=== PATIENT | male | born 1935 | race Caucasian/White ===

== ENCOUNTER 2016-10-25 18:42 | Inpatient (IN) | payer OTHER, MEDICARE ==
[~2016-10-25] VITALS: Ht 177.8 cm; Wt 78.9 kg
[2016-10-25] VITALS (7 sets, daily range): BP systolic 103–142; BP diastolic 43–118; PULSE 90–221; RESP 24–44; TEMP 96.9; O2SAT 95–99
[2016-10-25] MEDS ORDERED: DILTIAZEM HCL 25 MG/5 ML VIAL ONE (18:49)
[2016-10-25] MEDS ORDERED: ADENOSINE 6MG/2ML VIAL ONE (18:55)
[2016-10-25] MEDS ORDERED: DILTIAZEM HCL 125 MG/25 ML VIAL IV ONE (18:56)
[2016-10-25] MEDS ORDERED: AMOX500C2 PO (18:59)
[2016-10-25] MEDS ORDERED: ALD250 PO (18:59)
[2016-10-25] MEDS ORDERED: HYDR-1115 PO (18:59)
[2016-10-25] MEDS ORDERED: BENZ100C67 PO (18:59)
[2016-10-25] MEDS ORDERED: LISI-600 PO (18:59)
[2016-10-25] MEDS ORDERED: CLON0.5T4 PO (18:59)
[2016-10-25] MEDS ORDERED: NACL 0.9% 1,000 ML IV ONE ×2 (19:00→20:15)
[2016-10-25] MEDS ORDERED: DILTIAZEM HCL 125 MG in D5W 100 ML IV ONE (19:00)
[2016-10-25] MEDS ORDERED: MORPHINE SULFATE 10 MG/ML VIAL IVP ONE (19:00)
[2016-10-25] MEDS ORDERED: ETOMIDATE 20 MG/ 10 ML VIAL (AMIDATE) IVP ONE ×2 (19:00→20:00)
[2016-10-25] MEDS ORDERED: ROCURONIUM BROMIDE 10 MG/ML (ZEMURON) IV ONE ×3 (19:00→20:00)
[2016-10-25] MEDS ORDERED: methylPREDNISolone SOD SUCC/PF 62.5 MG/ML VIAL IVP ONE (19:00)
[2016-10-25] MEDS ORDERED: methylPREDNISolone SOD SUCC/PF 62.5 MG/ML VIAL ONE (19:03)
[2016-10-25 19:18] LABS: BASOPHILS % (AUTO) 0.1 % (0.0-2.0); EOSINOPHILS % (AUTO) 0.5 % (0.0-4.0); HEMATOCRIT 33.3 % (36-54); HEMOGLOBIN 11.1 g/dL (14.0-18.0); LYMPHOCYTES % (AUTO) 10.6 % (20.5-51.5); MEAN CORPUSCULAR HEMOGLOBIN 30 pg (27-31); MEAN CORPUSCULAR HGB CONC 33 % (32-36); MEAN CORPUSCULAR VOLUME 89 fL (79.0-98.0); MONOCYTES # (AUTO) 0.8 K/uL (0.0-1.0); MONOCYTES % (AUTO) 8.2 % (1.7-9.3); NEUTROPHILS # (AUTO) 7.5 K/uL (1.8-7.7); NEUTROPHILS % (AUTO) 80.6 % (40.0-70.0); PLATELET COUNT (AUTO) 173 K/uL (130-430); RED BLOOD CELL COUNT(AUTO) 3.75 MIL/uL (4.2-6.2); RED CELL DISTRIBUTION WIDTH 12.4 % (9.0-15.0); WHITE BLOOD COUNT (AUTO) 9.3 K/uL (4.8-10.8)
[2016-10-25 19:23] LABS: INR 1.4 (0.80-1.20); PROTHROMBIN TIME 15.2 SECS (9.5-12.5)
[2016-10-25] MEDS ORDERED: PROPOFOL DRIP 100 ML IV ONE (19:30)
[2016-10-25] MEDS ORDERED: DILTIAZEM HCL 25 MG/5 ML VIAL IVP ONE ×3 (19:30→20:00)
[2016-10-25 19:37] LABS: SODIUM SERUM 143 mmol/L (136-145)
[2016-10-25 19:37] LABS: BLOOD GAS BASE EXCESS -3.3 mmol/L (-3.0-3.0); BLOOD GAS PH 7.387 (7.350-7.450)
[2016-10-25 19:38] LABS: ANION GAP 10 (5-15); CHLORIDE 114 mmol/L (98-107); GLUCOSE 152 mg/dL (70-99); UREA NITROGEN, BLOOD 24 mg/dL (8-21)
[2016-10-25 19:38] LABS: ABG TOTAL HEMOGLOBIN 18.8 G/dL (12.0-18.0); BLOOD GAS COHb% 0.3 % (0.5-1.5); BLOOD O2Hb% 90.9 % (94.0-97.0)
[2016-10-25 19:39] LABS: ALANINE AMINOTRANSFERASE 28 U/L (12-78); ALBUMIN 1.4 g/dL (3.4-4.8); ASPARTATE AMINOTRANSFERASE 19 U/L (10-37); CREATINE KINASE, TOTAL 77 U/L (39-308); CREATININE 0.54 mg/dL (0.55-1.30); TOTAL BILIRUBIN 0.3 mg/dL (0.0-1.0); TOTAL PROTEIN, SERUM 4.4 g/dL (6.4-8.3)
[2016-10-25] MEDS ORDERED: KCL 40 mEq in 100 mL (PREMIX) 100 ML IV ONE (19:45)
[2016-10-25] MEDS ORDERED: ENOXAPARIN SODIUM 80 MG/0.8 ML SYRINGE SUBCUT ONE (20:00)
[2016-10-25] MEDS ORDERED: POTASSIUM CHLORIDE 20 MEQ/PKT PACKET NG ONE (20:15)
[2016-10-25] MEDS ORDERED: KCL 20 mEq in 100 mL (PREMIX) 200 ML IV ONE (20:22)
[2016-10-25 21:17] LABS: BLOOD GAS PH 7.189 (7.350-7.450)
[2016-10-25 21:18] LABS: BLOOD GAS BASE EXCESS -6.4 mmol/L (-3.0-3.0)
[2016-10-25 21:19] LABS: ABG TOTAL HEMOGLOBIN 18.9 G/dL (12.0-18.0); BLOOD GAS COHb% 0.3 % (0.5-1.5)
[2016-10-25] MEDS ORDERED: DIGOXIN 0.5 MG/2 ML AMP IVP ONE (21:30)
[2016-10-25] MEDS ORDERED: DIGOXIN 0.5 MG/2 ML AMP ONE (21:38)
[2016-10-25] MEDS ORDERED: IPRATROPIUM/ALBUTEROL SULFATE 3 ML AMPUL.NEB INH PRN (21:45)
[2016-10-25] MEDS ORDERED: DILTIAZEM HCL 125 MG in D5W 100 ML IV SCH (21:45)
[2016-10-25] MEDS: methylPREDNISolone SOD SUCC/PF 62.5 MG/ML VIAL IVP SCH (21:59)
[2016-10-25] MEDS ORDERED: NACL 0.9% 1,000 ML IV SCH (22:00)
[2016-10-25 22:23] LABS: ANION GAP 9 (5-15); CALCIUM 7.9 mg/dL (8.4-11.0); CHLORIDE 105 mmol/L (98-107); CREATININE 1.37 mg/dL (0.55-1.30); GLUCOSE 230 mg/dL (70-99); PHOSPHORUS 5.2 mg/dL (2.7-4.5); POTASSIUM 3.5 mmol/L (3.5-5.1); SODIUM SERUM 138 mmol/L (136-145); UREA NITROGEN, BLOOD 35 mg/dL (8-21)
[2016-10-25] MEDS ORDERED: FAMOTIDINE PF 20 MG/2 ML VIAL IVP ONE (22:30)
[2016-10-25] MEDS ORDERED: MORPHINE 4 MG/ML INJ. SYRINGE IVP PRN (22:30)
[2016-10-25 22:45] LABS: BLOOD GAS PH 7.167 (7.350-7.450)
[2016-10-25] MEDS ORDERED: ONDANSETRON HCL 4 MG/2 ML VIAL IVP PRN (22:45)
[2016-10-25 22:46] LABS: ABG TOTAL HEMOGLOBIN 17.5 G/dL (12.0-18.0); BLOOD GAS BASE EXCESS -8.4 mmol/L (-3.0-3.0)
[2016-10-25 22:47] LABS: BLOOD GAS COHb% 0.3 % (0.5-1.5); BLOOD GAS HHB 4.2 % (0.0-6.0)
[2016-10-25] MEDS: LR 1,000 ML IV SCH (23:03)
[2016-10-25 23:15] LABS: BLOOD GAS PH 7.118 (7.350-7.450)
[2016-10-25 23:16] LABS: ABG TOTAL HEMOGLOBIN 16.4 G/dL (12.0-18.0); BLOOD GAS BASE EXCESS -12.3 mmol/L (-3.0-3.0); BLOOD GAS COHb% 0.3 % (0.5-1.5); BLOOD GAS HHB 3.1 % (0.0-6.0); BLOOD O2Hb% 96.2 % (94.0-97.0)
[2016-10-25] MEDS ORDERED: POTASSIUM CHLORIDE 20 MEQ/PKT PACKET PO ONE (23:45)
[2016-10-26] VITALS (35 sets, daily range): BP systolic 88–165; BP diastolic 39–93; PULSE 60–161; RESP 20–35; TEMP 95.2–98; O2SAT 86–98; Ht 177.8 cm; Wt 78.9 kg
[2016-10-26] MEDS: LR 1,000 ML IV SCH ×2 (01:06→04:11)
[2016-10-26] MEDS: IPRATROPIUM/ALBUTEROL SULFATE 3 ML AMPUL.NEB INH SCH ×6 (01:08→23:35)
[2016-10-26] MEDS ORDERED: DILTIAZEM HCL 125 MG/25 ML VIAL IV ONE (01:28)
[2016-10-26 01:29] LABS: BLOOD GAS PH 7.053 (7.350-7.450)
[2016-10-26 01:32] LABS: ABG TOTAL HEMOGLOBIN 17.2 G/dL (12.0-18.0); BLOOD GAS BASE EXCESS -13.5 mmol/L (-3.0-3.0); BLOOD GAS COHb% 0.3 % (0.5-1.5); BLOOD GAS HHB 3.1 % (0.0-6.0); BLOOD O2Hb% 96.1 % (94.0-97.0)
[2016-10-26 02:07] LABS: ABG TOTAL HEMOGLOBIN 17.5 G/dL (12.0-18.0); BLOOD GAS BASE EXCESS -16.1 mmol/L (-3.0-3.0); BLOOD GAS COHb% 0.3 % (0.5-1.5); BLOOD GAS HHB 4.1 % (0.0-6.0)
[2016-10-26] MEDS ORDERED: NOREPINEPHRINE BITARTRATE 4 MG in NS 246 ML IV PRN (02:15)
[2016-10-26] MEDS ORDERED: NOREPINEPHRINE 4 MG/4 ML VIAL IV ONE (03:10)
[2016-10-26 03:39] LABS: BLOOD GAS PH 6.973 (7.350-7.450)
[2016-10-26 03:41] LABS: ABG TOTAL HEMOGLOBIN 16.6 G/dL (12.0-18.0); BLOOD GAS BASE EXCESS -18.4 mmol/L (-3.0-3.0); BLOOD GAS COHb% 0.2 % (0.5-1.5); BLOOD GAS HHB 7.1 % (0.0-6.0); BLOOD O2Hb% 92.2 % (94.0-97.0)
[2016-10-26] MEDS ORDERED: FUROSEMIDE 40 MG/4 ML VIAL IVP ONE (06:45)
[2016-10-26] MEDS ORDERED: LR 1,000 ML IV SCH (06:45)
[2016-10-26] MEDS: methylPREDNISolone SOD SUCC/PF 62.5 MG/ML VIAL IVP SCH ×4 (06:57→23:12)
[2016-10-26 07:15] LABS: ALANINE AMINOTRANSFERASE 61 U/L (12-78); ALBUMIN 2.1 g/dL (3.4-4.8); ANION GAP 14 (5-15); ASPARTATE AMINOTRANSFERASE 46 U/L (10-37); CALCIUM 7.6 mg/dL (8.4-11.0); CHLORIDE 106 mmol/L (98-107); CREATININE 1.81 mg/dL (0.55-1.30); GLUCOSE 302 mg/dL (70-99); SODIUM SERUM 136 mmol/L (136-145); THYROID STIMULATING HORMONE 0.22 uIu/mL (0.34-4.82); TOTAL BILIRUBIN 0.6 mg/dL (0.0-1.0); TOTAL PROTEIN, SERUM 7.3 g/dL (6.4-8.3); UREA NITROGEN, BLOOD 38 mg/dL (8-21)
[2016-10-26 07:18] LABS: BASOPHILS % (AUTO) 0.1 % (0.0-2.0); HEMATOCRIT 47.6 % (36-54); HEMOGLOBIN 15.3 g/dL (14.0-18.0); LYMPHOCYTES # (AUTO) 0.8 K/uL (1.0-5.5); LYMPHOCYTES % (AUTO) 4.1 % (20.5-51.5); MEAN CORPUSCULAR HEMOGLOBIN 29 pg (27-31); MEAN CORPUSCULAR HGB CONC 32 % (32-36); MONOCYTES # (AUTO) 0.7 K/uL (0.0-1.0); MONOCYTES % (AUTO) 3.5 % (1.7-9.3); NEUTROPHILS # (AUTO) 17.6 K/uL (1.8-7.7); PLATELET COUNT (AUTO) 270 K/uL (130-430); RED BLOOD CELL COUNT(AUTO) 5.24 MIL/uL (4.2-6.2); RED CELL DISTRIBUTION WIDTH 13.1 % (9.0-15.0); WHITE BLOOD COUNT (AUTO) 19.1 K/uL (4.8-10.8)
[2016-10-26 07:24] LABS: MEAN CORPUSCULAR VOLUME 91 fL (79.0-98.0)
[2016-10-26 07:31] LABS: POTASSIUM 6.1 mmol/L (3.5-5.1)
[2016-10-26] MEDS ORDERED: SODIUM BICARBONATE 8.4% JECT 50 MEQ/50 ML SYRINGE IVP ONE (08:00)
[2016-10-26 08:02] LABS: ABG TOTAL HEMOGLOBIN 16.6 G/dL (12.0-18.0); BLOOD GAS BASE EXCESS -14.3 mmol/L (-3.0-3.0); BLOOD GAS COHb% 0.3 % (0.5-1.5); BLOOD GAS HHB 4.9 % (0.0-6.0); BLOOD GAS PH 7.147 (7.350-7.450); BLOOD O2Hb% 94.6 % (94.0-97.0)
[2016-10-26] MEDS: FAMOTIDINE PF 20 MG/2 ML VIAL IVP SCH ×2 (08:35→21:06)
[2016-10-26] MEDS: ENOXAPARIN SODIUM 60 MG/0.6 ML SYRINGE SUBCUT SCH ×2 (08:36→21:00)
[2016-10-26] MEDS: POTASSIUM CHLORIDE 20 MEQ/PKT PACKET NG SCH ×3 (08:36→21:00)
[2016-10-26] MEDS: LISINOPRIL 20 MG TABLET PO SCH (08:37)
[2016-10-26] MEDS: PROPOFOL DRIP 100 ML IV PRN ×3 (08:40→23:08)
[2016-10-26] MEDS ORDERED: MORPHINE 2 MG/ML INJ. SYRINGE IVP PRN (09:00)
[2016-10-26] MEDS ORDERED: DIGOXIN 0.5 MG/2 ML AMP IVP SCH (09:00)
[2016-10-26] MEDS ORDERED: SODIUM BICARBONATE 8.4% JECT 100 MEQ in 0.45% NACL 1,000 ML IV SCH ×2 (09:00→11:00)
[2016-10-26 09:03] LABS: IRON (SERUM) 44 mcg/dL (59-158); TOTAL IRON BIND. CAPACITY 158 ug/dL (250-450)
[2016-10-26] MEDS ORDERED: SODIUM POLYSTYRENE SULFONATE 15 GM/60 ML UDBTL NG ONE (09:30)
[2016-10-26 10:10] LABS: NEUTROPHILS % (AUTO) 92.3 % (40.0-70.0)
[2016-10-26] MEDS ORDERED: SODIUM BICARBONATE 8.4% JECT 50 MEQ in 0.45% NACL 1,000 ML IV SCH (10:45)
[2016-10-26] MEDS: CEFEPIME 1 GM in D5W 50 ML IV SCH ×2 (11:41→21:14)
[2016-10-26 12:30] LABS: ABG TOTAL HEMOGLOBIN 15.6 G/dL (12.0-18.0); BLOOD GAS BASE EXCESS -4.7 mmol/L (-3.0-3.0); BLOOD GAS HHB 4.9 % (0.0-6.0); BLOOD GAS PH 7.372 (7.350-7.450)
[2016-10-26 14:31] LABS: ANION GAP 8 (5-15); CHLORIDE 111 mmol/L (98-107); CREATININE 2.15 mg/dL (0.55-1.30); GLUCOSE 169 mg/dL (70-99); POTASSIUM 4.6 mmol/L (3.5-5.1); SODIUM SERUM 142 mmol/L (136-145); UREA NITROGEN, BLOOD 47 mg/dL (8-21)
[2016-10-26] MEDS ORDERED: ASPIRIN 81 MG TABLET(ECOTRIN) PO ONE (16:00)
[2016-10-26] MEDS ORDERED: hydrALAZINE HCL 20 MG/ML VIAL IVP ONE (17:45)
[2016-10-26] MEDS: D5/0.45 NS 1,000 ML IV SCH (17:45)
[2016-10-26] MEDS ORDERED: hydrALAZINE HCL 20 MG/ML VIAL ONE (17:47)
[2016-10-26] MEDS ORDERED: AMIODARONE HCL 150 MG in D5W 100 ML IV ONE (18:00)
[2016-10-26] MEDS ORDERED: DILTIAZEM HCL 30 MG TABLET PO ONE (19:30)
[2016-10-26] MEDS: AMIODARONE HCL 900 MG in D5W 482 ML IV SCH (20:21)
[2016-10-26] MEDS: LEVOFLOXACIN 250 MG/D5W 50 ML IV SCH (21:13)
[2016-10-26] MEDS: DILTIAZEM HCL 30 MG TABLET PO SCH (23:13)
[2016-10-27] VITALS (36 sets, daily range): BP systolic 107–169; BP diastolic 55–116; PULSE 78–136; RESP 17–29; TEMP 97.2–98.5; O2SAT 97–100
[2016-10-27] MEDS: clonazePAM 0.5 MG TABLET PO PRN (00:07)
[2016-10-27] MEDS: LORazepam 2 MG/ML VIAL IVP PRN ×4 (02:16→12:27)
[2016-10-27] MEDS: D5/0.45 NS 1,000 ML IV SCH ×3 (02:19→22:16)
[2016-10-27] MEDS: IPRATROPIUM/ALBUTEROL SULFATE 3 ML AMPUL.NEB INH SCH ×6 (03:59→23:32)
[2016-10-27] MEDS: PROPOFOL DRIP 100 ML IV PRN ×3 (04:36→23:23)
[2016-10-27] MEDS: methylPREDNISolone SOD SUCC/PF 62.5 MG/ML VIAL IVP SCH ×4 (05:04→23:24)
[2016-10-27] MEDS: DILTIAZEM HCL 30 MG TABLET PO SCH ×4 (05:05→23:25)
[2016-10-27 06:54] LABS: HEMATOCRIT 38.8 % (36-54); HEMOGLOBIN 13.2 g/dL (14.0-18.0); LYMPHOCYTES # (AUTO) 0.4 K/uL (1.0-5.5); LYMPHOCYTES % (AUTO) 2.2 % (20.5-51.5); MEAN CORPUSCULAR HEMOGLOBIN 30 pg (27-31); MEAN CORPUSCULAR HGB CONC 34 % (32-36); MEAN CORPUSCULAR VOLUME 89 fL (79.0-98.0); MONOCYTES # (AUTO) 0.8 K/uL (0.0-1.0); MONOCYTES % (AUTO) 4.7 % (1.7-9.3); NEUTROPHILS # (AUTO) 15.1 K/uL (1.8-7.7); NEUTROPHILS % (AUTO) 93.1 % (40.0-70.0); PLATELET COUNT (AUTO) 166 K/uL (130-430); RED BLOOD CELL COUNT(AUTO) 4.37 MIL/uL (4.2-6.2); RED CELL DISTRIBUTION WIDTH 12.5 % (9.0-15.0); WHITE BLOOD COUNT (AUTO) 16.3 K/uL (4.8-10.8)
[2016-10-27 06:58] LABS: ALANINE AMINOTRANSFERASE 74 U/L (12-78); ANION GAP 12 (5-15); ASPARTATE AMINOTRANSFERASE 64 U/L (10-37); CALCIUM 7.6 mg/dL (8.4-11.0); CHLORIDE 105 mmol/L (98-107); CREATININE 2.25 mg/dL (0.55-1.30); GLUCOSE 200 mg/dL (70-99); POTASSIUM 3.2 mmol/L (3.5-5.1); SODIUM SERUM 139 mmol/L (136-145); TOTAL BILIRUBIN 0.3 mg/dL (0.0-1.0); TOTAL PROTEIN, SERUM 6.2 g/dL (6.4-8.3); UREA NITROGEN, BLOOD 53 mg/dL (8-21)
[2016-10-27 07:42] LABS: ABG TOTAL HEMOGLOBIN 14.4 G/dL (12.0-18.0); BLOOD GAS BASE EXCESS -0.3 mmol/L (-3.0-3.0); BLOOD GAS COHb% 0.3 % (0.5-1.5); BLOOD GAS HHB 1.9 % (0.0-6.0); BLOOD O2Hb% 97.3 % (94.0-97.0)
[2016-10-27] MEDS: ASPIRIN 81 MG TABLET(ECOTRIN) PO SCH (08:06)
[2016-10-27] MEDS: CEFEPIME 1 GM in D5W 50 ML IV SCH ×2 (08:06→20:52)
[2016-10-27] MEDS: LISINOPRIL 20 MG TABLET PO SCH (08:08)
[2016-10-27] MEDS: POTASSIUM CHLORIDE 20 MEQ/PKT PACKET NG SCH ×2 (08:09→20:52)
[2016-10-27] MEDS: FAMOTIDINE PF 20 MG/2 ML VIAL IVP SCH ×2 (08:09→20:52)
[2016-10-27] MEDS: ENOXAPARIN SODIUM 60 MG/0.6 ML SYRINGE SUBCUT SCH ×2 (08:11→20:53)
[2016-10-27] MEDS: hydrALAZINE HCL 20 MG/ML VIAL IVP PRN (11:36)
[2016-10-27] MEDS ORDERED: DILTIAZEM HCL 30 MG TABLET PO ONE (14:00)
[2016-10-27] MEDS ORDERED: DILTIAZEM HCL 30 MG TABLET ONE (14:02)
[2016-10-27] MEDS ORDERED: AMIODARONE HCL 900 MG/18 ML VIAL IV ONE (20:27)
[2016-10-27] MEDS: AMIODARONE HCL 900 MG in D5W 482 ML IV SCH (20:39)
[2016-10-27] MEDS: LEVOFLOXACIN 250 MG/D5W 50 ML IV SCH (20:51)
[2016-10-27] MEDS: FLU VACC QS 2016-17(36MOS+)/PF 0.5 ML/SYR SYRINGE I.M. PRN (20:57)
[2016-10-28] VITALS (36 sets, daily range): BP systolic 113–168; BP diastolic 33–86; PULSE 76–105; RESP 18–28; TEMP 98–98.9; O2SAT 97–100
[2016-10-28] MEDS: IPRATROPIUM/ALBUTEROL SULFATE 3 ML AMPUL.NEB INH SCH ×6 (03:58→23:25)
[2016-10-28] MEDS: methylPREDNISolone SOD SUCC/PF 62.5 MG/ML VIAL IVP SCH ×3 (05:59→21:21)
[2016-10-28] MEDS: DILTIAZEM HCL 30 MG TABLET PO SCH ×3 (06:00→18:15)
[2016-10-28 06:37] LABS: HEMATOCRIT 40.3 % (36-54); HEMOGLOBIN 13.2 g/dL (14.0-18.0); LYMPHOCYTES # (AUTO) 0.2 K/uL (1.0-5.5); LYMPHOCYTES % (AUTO) 1.1 % (20.5-51.5); MEAN CORPUSCULAR HEMOGLOBIN 30 pg (27-31); MEAN CORPUSCULAR HGB CONC 33 % (32-36); MEAN CORPUSCULAR VOLUME 90 fL (79.0-98.0); MONOCYTES # (AUTO) 0.6 K/uL (0.0-1.0); MONOCYTES % (AUTO) 3.2 % (1.7-9.3); NEUTROPHILS % (AUTO) 95.7 % (40.0-70.0); PLATELET COUNT (AUTO) 209 K/uL (130-430); RED BLOOD CELL COUNT(AUTO) 4.46 MIL/uL (4.2-6.2); WHITE BLOOD COUNT (AUTO) 19.8 K/uL (4.8-10.8)
[2016-10-28 06:51] LABS: ALANINE AMINOTRANSFERASE 90 U/L (12-78); ALBUMIN 2.1 g/dL (3.4-4.8); ANION GAP 9 (5-15); ASPARTATE AMINOTRANSFERASE 50 U/L (10-37); CALCIUM 7.6 mg/dL (8.4-11.0); CHLORIDE 104 mmol/L (98-107); CREATININE 2.27 mg/dL (0.55-1.30); GLUCOSE 231 mg/dL (70-99); POTASSIUM 4.1 mmol/L (3.5-5.1); SODIUM SERUM 135 mmol/L (136-145); TOTAL BILIRUBIN 0.2 mg/dL (0.0-1.0); TOTAL PROTEIN, SERUM 6.3 g/dL (6.4-8.3); UREA NITROGEN, BLOOD 67 mg/dL (8-21)
[2016-10-28 08:04] LABS: BLOOD GAS PH 7.391 (7.350-7.450)
[2016-10-28 08:05] LABS: BLOOD GAS BASE EXCESS -5.1 mmol/L (-3.0-3.0); BLOOD GAS COHb% 0.5 % (0.5-1.5); BLOOD GAS HHB 2.7 % (0.0-6.0); BLOOD O2Hb% 96.3 % (94.0-97.0)
[2016-10-28] MEDS: FAMOTIDINE PF 20 MG/2 ML VIAL IVP SCH ×2 (09:43→21:12)
[2016-10-28] MEDS: CEFEPIME 1 GM in D5W 50 ML IV SCH ×2 (09:43→21:12)
[2016-10-28] MEDS: ENOXAPARIN SODIUM 60 MG/0.6 ML SYRINGE SUBCUT SCH ×2 (09:43→21:12)
[2016-10-28] MEDS: D5/0.45 NS 1,000 ML IV SCH (09:44)
[2016-10-28] MEDS: POTASSIUM CHLORIDE 20 MEQ/PKT PACKET NG SCH (09:44)
[2016-10-28] MEDS: ASPIRIN 81 MG TABLET(ECOTRIN) PO SCH (09:44)
[2016-10-28] MEDS: PROPOFOL DRIP 100 ML IV PRN ×3 (09:51→22:07)
[2016-10-28 09:57] LABS: HEMOGLOBIN A1C 5.9 % (4.8-5.6)
[2016-10-28] MEDS ORDERED: FUROSEMIDE 20 MG/2 ML VIAL IVP ONE (10:15)
[2016-10-28] MEDS: 0.45% NACL 1,000 ML IV SCH ×2 (11:04→22:01)
[2016-10-28] MEDS ORDERED: AMIODARONE HCL 200 MG TABLET PO ONE (16:15)
[2016-10-28] MEDS: AMIODARONE HCL 200 MG TABLET PO SCH (21:13)
[2016-10-28] MEDS: hydrALAZINE HCL 20 MG/ML VIAL IVP PRN (21:38)
[2016-10-28] MEDS: LEVOFLOXACIN 250 MG/D5W 50 ML IV SCH (21:58)
[2016-10-29] VITALS (35 sets, daily range): BP systolic 115–179; BP diastolic 54–84; PULSE 73–99; RESP 17–30; TEMP 97.3–98.9; O2SAT 97–99
[2016-10-29] MEDS: DILTIAZEM HCL 30 MG TABLET PO SCH ×3 (00:22→14:02)
[2016-10-29] MEDS: PROPOFOL DRIP 100 ML IV PRN ×3 (02:04→17:17)
[2016-10-29] MEDS: IPRATROPIUM/ALBUTEROL SULFATE 3 ML AMPUL.NEB INH SCH ×5 (04:04→23:12)
[2016-10-29] MEDS: methylPREDNISolone SOD SUCC/PF 62.5 MG/ML VIAL IVP SCH ×3 (06:11→23:04)
[2016-10-29 06:51] LABS: BASOPHILS % (AUTO) 0.1 % (0.0-2.0); HEMATOCRIT 40.7 % (36-54); HEMOGLOBIN 13.6 g/dL (14.0-18.0); LYMPHOCYTES # (AUTO) 0.2 K/uL (1.0-5.5); LYMPHOCYTES % (AUTO) 0.9 % (20.5-51.5); MEAN CORPUSCULAR HEMOGLOBIN 30 pg (27-31); MEAN CORPUSCULAR HGB CONC 33 % (32-36); MEAN CORPUSCULAR VOLUME 90 fL (79.0-98.0); MONOCYTES # (AUTO) 0.8 K/uL (0.0-1.0); MONOCYTES % (AUTO) 4.2 % (1.7-9.3); NEUTROPHILS # (AUTO) 17.2 K/uL (1.8-7.7); NEUTROPHILS % (AUTO) 94.8 % (40.0-70.0); PLATELET COUNT (AUTO) 223 K/uL (130-430); RED BLOOD CELL COUNT(AUTO) 4.55 MIL/uL (4.2-6.2); RED CELL DISTRIBUTION WIDTH 13.5 % (9.0-15.0); WHITE BLOOD COUNT (AUTO) 18.2 K/uL (4.8-10.8)
[2016-10-29 07:05] LABS: ALANINE AMINOTRANSFERASE 89 U/L (12-78); ALBUMIN 1.9 g/dL (3.4-4.8); ANION GAP 7 (5-15); ASPARTATE AMINOTRANSFERASE 39 U/L (10-37); CALCIUM 7.5 mg/dL (8.4-11.0); CHLORIDE 106 mmol/L (98-107); CREATININE 2.09 mg/dL (0.55-1.30); GLUCOSE 163 mg/dL (70-99); POTASSIUM 4.9 mmol/L (3.5-5.1); SODIUM SERUM 136 mmol/L (136-145); TOTAL BILIRUBIN 0.2 mg/dL (0.0-1.0); UREA NITROGEN, BLOOD 72 mg/dL (8-21)
[2016-10-29 08:27] LABS: ABG TOTAL HEMOGLOBIN 14.6 G/dL (12.0-18.0); BLOOD GAS BASE EXCESS -4.6 mmol/L (-3.0-3.0); BLOOD GAS COHb% 0.7 % (0.5-1.5); BLOOD GAS HHB 2.1 % (0.0-6.0); BLOOD GAS PH 7.411 (7.350-7.450); BLOOD O2Hb% 96.6 % (94.0-97.0)
[2016-10-29] MEDS ORDERED: FUROSEMIDE 20 MG/2 ML VIAL IVP ONE (10:45)
[2016-10-29] MEDS: CEFEPIME 1 GM in D5W 50 ML IV SCH ×2 (10:52→23:05)
[2016-10-29] MEDS: FAMOTIDINE PF 20 MG/2 ML VIAL IVP SCH ×2 (10:52→23:04)
[2016-10-29] MEDS: AMIODARONE HCL 200 MG TABLET PO SCH ×2 (10:53→23:03)
[2016-10-29] MEDS: ASPIRIN 81 MG TABLET(ECOTRIN) PO SCH (10:54)
[2016-10-29] MEDS: ENOXAPARIN SODIUM 60 MG/0.6 ML SYRINGE SUBCUT SCH ×2 (10:54→23:05)
[2016-10-29] MEDS: 0.45% NACL 1,000 ML IV SCH (14:19)
[2016-10-29] MEDS: LORazepam 2 MG/ML VIAL IVP PRN ×2 (18:30→23:33)
[2016-10-29] MEDS: CARVEDILOL 6.25 MG TABLET (COREG) PO SCH (23:03)
[2016-10-29] MEDS: LEVOFLOXACIN 250 MG/D5W 50 ML IV SCH (23:05)
[2016-10-30] VITALS (30 sets, daily range): BP systolic 123–192; BP diastolic 62–98; PULSE 69–86; RESP 10–25; TEMP 97–99.1; O2SAT 93–99
[2016-10-30] MEDS: IPRATROPIUM/ALBUTEROL SULFATE 3 ML AMPUL.NEB INH SCH ×6 (04:03→23:16)
[2016-10-30] MEDS: PROPOFOL DRIP 100 ML IV PRN (04:47)
[2016-10-30] MEDS: methylPREDNISolone SOD SUCC/PF 62.5 MG/ML VIAL IVP SCH ×3 (06:07→21:44)
[2016-10-30] MEDS: 0.45% NACL 1,000 ML IV SCH ×2 (06:36→07:16)
[2016-10-30 06:38] LABS: BASOPHILS % (AUTO) 0.1 % (0.0-2.0); HEMATOCRIT 40.7 % (36-54); HEMOGLOBIN 13.8 g/dL (14.0-18.0); LYMPHOCYTES # (AUTO) 0.1 K/uL (1.0-5.5); LYMPHOCYTES % (AUTO) 0.8 % (20.5-51.5); MEAN CORPUSCULAR HEMOGLOBIN 30 pg (27-31); MEAN CORPUSCULAR HGB CONC 34 % (32-36); MEAN CORPUSCULAR VOLUME 90 fL (79.0-98.0); MONOCYTES # (AUTO) 0.6 K/uL (0.0-1.0); MONOCYTES % (AUTO) 4.1 % (1.7-9.3); NEUTROPHILS # (AUTO) 13.9 K/uL (1.8-7.7); PLATELET COUNT (AUTO) 230 K/uL (130-430); RED BLOOD CELL COUNT(AUTO) 4.54 MIL/uL (4.2-6.2); RED CELL DISTRIBUTION WIDTH 13.2 % (9.0-15.0); WHITE BLOOD COUNT (AUTO) 14.6 K/uL (4.8-10.8)
[2016-10-30 07:16] LABS: ANION GAP 4 (5-15); CALCIUM 7.9 mg/dL (8.4-11.0); CHLORIDE 107 mmol/L (98-107); GLUCOSE 167 mg/dL (70-99); POTASSIUM 5.4 mmol/L (3.5-5.1); SODIUM SERUM 136 mmol/L (136-145); UREA NITROGEN, BLOOD 81 mg/dL (8-21)
[2016-10-30 08:25] LABS: BLOOD GAS PH 7.408 (7.350-7.450)
[2016-10-30 08:26] LABS: ABG TOTAL HEMOGLOBIN 15.5 G/dL (12.0-18.0); BLOOD GAS BASE EXCESS -1.8 mmol/L (-3.0-3.0); BLOOD GAS COHb% 0.1 % (0.5-1.5); BLOOD GAS HHB 2.3 % (0.0-6.0); BLOOD O2Hb% 97.3 % (94.0-97.0)
[2016-10-30] MEDS: ASPIRIN 81 MG TABLET(ECOTRIN) PO SCH (08:30)
[2016-10-30] MEDS: CARVEDILOL 6.25 MG TABLET (COREG) PO SCH ×2 (08:30→21:46)
[2016-10-30] MEDS: FAMOTIDINE PF 20 MG/2 ML VIAL IVP SCH ×2 (08:31→21:47)
[2016-10-30] MEDS: AMIODARONE HCL 200 MG TABLET PO SCH ×2 (08:31→21:45)
[2016-10-30] MEDS: CEFEPIME 1 GM in D5W 50 ML IV SCH ×2 (08:32→22:11)
[2016-10-30] MEDS: ENOXAPARIN SODIUM 60 MG/0.6 ML SYRINGE SUBCUT SCH ×2 (09:34→21:45)
[2016-10-30 11:24] LABS: BLOOD GAS BASE EXCESS -1.4 mmol/L (-3.0-3.0); BLOOD GAS COHb% 0.3 % (0.5-1.5); BLOOD GAS HHB 2.7 % (0.0-6.0); BLOOD GAS PH 7.406 (7.350-7.450); BLOOD O2Hb% 96.7 % (94.0-97.0)
[2016-10-30] MEDS: hydrALAZINE HCL 20 MG/ML VIAL IVP PRN ×2 (14:48→22:23)
[2016-10-30] MEDS ORDERED: DEXTROSE 50% JECT 50 ML DISP.SYRIN IVP PRN (17:15)
[2016-10-30] MEDS: D5/0.45 NS 1,000 ML IV SCH (18:01)
[2016-10-30] MEDS ORDERED: LIDOCAINE VISCOUS 2%, 15 ML UDC MM PRN (20:00)
[2016-10-30] MEDS ORDERED: BENZOCAINE/MENTHOL 1 EACH LOZENGE MM PRN (20:00)
[2016-10-30] MEDS ORDERED: BENZOCAINE/MENTHOL 1 EACH LOZENGE ONE (21:44)
[2016-10-30] MEDS: INSULIN REGULAR, HUMAN 100 UNITS/ML, 10 ML VIAL (novoLIN R) SUBCUT PRN (22:13)
[2016-10-30] MEDS: LEVOFLOXACIN 250 MG/D5W 50 ML IV SCH (22:27)
[2016-10-31] VITALS (19 sets, daily range): BP systolic 144–174; BP diastolic 67–94; PULSE 68–79; RESP 12–22; TEMP 96.8–98.8; O2SAT 89–100
[2016-10-31] MEDS: clonazePAM 0.5 MG TABLET PO PRN (01:01)
[2016-10-31] MEDS: IPRATROPIUM/ALBUTEROL SULFATE 3 ML AMPUL.NEB INH SCH ×6 (03:00→23:46)
[2016-10-31] MEDS: hydrALAZINE HCL 20 MG/ML VIAL IVP PRN ×2 (05:50→15:52)
[2016-10-31] MEDS: methylPREDNISolone SOD SUCC/PF 62.5 MG/ML VIAL IVP SCH ×2 (05:55→13:28)
[2016-10-31] MEDS: INSULIN REGULAR, HUMAN 100 UNITS/ML, 10 ML VIAL (novoLIN R) SUBCUT PRN ×3 (05:56→17:17)
[2016-10-31] MEDS: FLU VACC QS 2016-17(36MOS+)/PF 0.5 ML/SYR SYRINGE I.M. PRN (06:07)
[2016-10-31 06:45] LABS: ALANINE AMINOTRANSFERASE 83 U/L (12-78); ALBUMIN 1.9 g/dL (3.4-4.8); ANION GAP 4 (5-15); ASPARTATE AMINOTRANSFERASE 34 U/L (10-37); CALCIUM 7.9 mg/dL (8.4-11.0); CHLORIDE 111 mmol/L (98-107); CREATININE 1.71 mg/dL (0.55-1.30); GLUCOSE 157 mg/dL (70-99); POTASSIUM 5.2 mmol/L (3.5-5.1); SODIUM SERUM 141 mmol/L (136-145); TOTAL BILIRUBIN 0.4 mg/dL (0.0-1.0); TOTAL PROTEIN, SERUM 5.7 g/dL (6.4-8.3); UREA NITROGEN, BLOOD 77 mg/dL (8-21)
[2016-10-31 06:50] LABS: HEMATOCRIT 43.6 % (36-54); HEMOGLOBIN 14.4 g/dL (14.0-18.0); LYMPHOCYTES # (AUTO) 0.1 K/uL (1.0-5.5); LYMPHOCYTES % (AUTO) 1.1 % (20.5-51.5); MEAN CORPUSCULAR HEMOGLOBIN 30 pg (27-31); MEAN CORPUSCULAR HGB CONC 33 % (32-36); MEAN CORPUSCULAR VOLUME 90 fL (79.0-98.0); MONOCYTES # (AUTO) 0.8 K/uL (0.0-1.0); NEUTROPHILS # (AUTO) 11.9 K/uL (1.8-7.7); NEUTROPHILS % (AUTO) 92.9 % (40.0-70.0); PLATELET COUNT (AUTO) 278 K/uL (130-430); RED BLOOD CELL COUNT(AUTO) 4.82 MIL/uL (4.2-6.2); RED CELL DISTRIBUTION WIDTH 13.6 % (9.0-15.0); WHITE BLOOD COUNT (AUTO) 12.8 K/uL (4.8-10.8)
[2016-10-31 07:56] LABS: BLOOD GAS PH 7.413 (7.350-7.450)
[2016-10-31 07:57] LABS: ABG TOTAL HEMOGLOBIN 16.2 G/dL (12.0-18.0); BLOOD GAS BASE EXCESS -0.5 mmol/L (-3.0-3.0); BLOOD GAS COHb% 0.4 % (0.5-1.5); BLOOD GAS HHB 3.3 % (0.0-6.0)
[2016-10-31] MEDS: FAMOTIDINE PF 20 MG/2 ML VIAL IVP SCH ×2 (08:21→22:04)
[2016-10-31] MEDS: ENOXAPARIN SODIUM 60 MG/0.6 ML SYRINGE SUBCUT SCH ×2 (08:21→22:05)
[2016-10-31] MEDS: ASPIRIN 81 MG TABLET(ECOTRIN) PO SCH (08:21)
[2016-10-31] MEDS: CEFEPIME 1 GM in D5W 50 ML IV SCH ×2 (08:21→22:07)
[2016-10-31] MEDS: CARVEDILOL 6.25 MG TABLET (COREG) PO SCH ×2 (08:26→22:06)
[2016-10-31] MEDS: AMIODARONE HCL 200 MG TABLET PO SCH ×2 (08:27→22:05)
[2016-10-31] MEDS: D5/0.45 NS 1,000 ML IV SCH (11:07)
[2016-10-31] MEDS ORDERED: THIAMINE HCL 100 MG in NS 50 ML IV ONE (17:45)
[2016-10-31] MEDS: methylPREDNISolone SOD SUCC 40 MG/ML VIAL IVP SCH (22:04)
[2016-10-31] MEDS: TAMSULOSIN HCL 0.4 MG CAP PO SCH (22:05)
[2016-10-31] MEDS: LEVOFLOXACIN 250 MG/D5W 50 ML IV SCH (22:25)
[2016-11-01 00:16] VITALS: BP 156/83; PULSE 77; RESP 20; TEMP 97.4; O2SAT 94
[2016-11-01] MEDS: IPRATROPIUM/ALBUTEROL SULFATE 3 ML AMPUL.NEB INH SCH ×6 (03:00→23:29)
[2016-11-01] MEDS: LORazepam 2 MG/ML VIAL IVP PRN (03:29)
[2016-11-01] MEDS: D5/0.45 NS 1,000 ML IV SCH ×2 (03:30→17:56)
[2016-11-01 04:23] VITALS: BP 124/66; PULSE 70; RESP 21; TEMP 97; O2SAT 94
[2016-11-01] MEDS: INSULIN REGULAR, HUMAN 100 UNITS/ML, 10 ML VIAL (novoLIN R) SUBCUT PRN ×4 (06:47→20:50)
[2016-11-01 07:26] LABS: BASOPHILS % (AUTO) 0.1 % (0.0-2.0); HEMATOCRIT 43.4 % (36-54); HEMOGLOBIN 14.3 g/dL (14.0-18.0); LYMPHOCYTES # (AUTO) 0.2 K/uL (1.0-5.5); LYMPHOCYTES % (AUTO) 1.2 % (20.5-51.5); MEAN CORPUSCULAR HEMOGLOBIN 30 pg (27-31); MEAN CORPUSCULAR HGB CONC 33 % (32-36); MEAN CORPUSCULAR VOLUME 89 fL (79.0-98.0); MONOCYTES # (AUTO) 0.7 K/uL (0.0-1.0); MONOCYTES % (AUTO) 5.2 % (1.7-9.3); NEUTROPHILS # (AUTO) 12.2 K/uL (1.8-7.7); NEUTROPHILS % (AUTO) 93.5 % (40.0-70.0); PLATELET COUNT (AUTO) 268 K/uL (130-430); RED BLOOD CELL COUNT(AUTO) 4.85 MIL/uL (4.2-6.2); RED CELL DISTRIBUTION WIDTH 13.4 % (9.0-15.0); WHITE BLOOD COUNT (AUTO) 13.1 K/uL (4.8-10.8)
[2016-11-01 07:47] LABS: ANION GAP 7 (5-15); CALCIUM 7.5 mg/dL (8.4-11.0); CHLORIDE 111 mmol/L (98-107); CREATININE 1.74 mg/dL (0.55-1.30); GLUCOSE 155 mg/dL (70-99); SODIUM SERUM 142 mmol/L (136-145); UREA NITROGEN, BLOOD 72 mg/dL (8-21)
[2016-11-01 08:15] VITALS: BP 184/90; PULSE 72; RESP 18; TEMP 97.8; O2SAT 95
[2016-11-01] MEDS: TAMSULOSIN HCL 0.4 MG CAP PO SCH ×2 (08:17→20:27)
[2016-11-01] MEDS: ASPIRIN 81 MG TABLET(ECOTRIN) PO SCH (08:18)
[2016-11-01] MEDS: CARVEDILOL 6.25 MG TABLET (COREG) PO SCH ×2 (08:18→20:28)
[2016-11-01] MEDS: THIAMINE HCL 100 MG TABLET PO SCH (08:18)
[2016-11-01] MEDS: AMIODARONE HCL 200 MG TABLET PO SCH ×2 (08:18→20:27)
[2016-11-01] MEDS: NEPHROVITE, (FOLIC ACID/VITAMIN B COMP W-C 1 TAB) PO SCH (08:18)
[2016-11-01] MEDS: methylPREDNISolone SOD SUCC 40 MG/ML VIAL IVP SCH (08:19)
[2016-11-01] MEDS: CEFEPIME 1 GM in D5W 50 ML IV SCH ×2 (08:19→20:44)
[2016-11-01] MEDS: ENOXAPARIN SODIUM 60 MG/0.6 ML SYRINGE SUBCUT SCH (08:19)
[2016-11-01] MEDS: FAMOTIDINE PF 20 MG/2 ML VIAL IVP SCH ×2 (08:19→20:28)
[2016-11-01] MEDS ORDERED: BUDESONIDE 0.5 MG/2 ML AMPUL.NEB INH ONE (10:00)
[2016-11-01] MEDS ORDERED: LISINOPRIL 20 MG TABLET PO ONE (10:15)
[2016-11-01 12:00] VITALS: BP 176/93; PULSE 68; RESP 17; TEMP 97.4; O2SAT 96
[2016-11-01] MEDS ORDERED: methylPREDNISolone SOD SUCC 40 MG/ML VIAL IVP SCH (14:00)
[2016-11-01 16:20] VITALS: BP 164/76; PULSE 66; RESP 18; TEMP 97.2; O2SAT 94
[2016-11-01 19:40] VITALS: BP 169/92; PULSE 70; RESP 20; TEMP 97.3; O2SAT 94
[2016-11-01] MEDS: BUDESONIDE 0.5 MG/2 ML AMPUL.NEB INH SCH (19:49)
[2016-11-01] MEDS: ENOXAPARIN SODIUM 40 MG/0.4 ML SYRINGE SUBCUT SCH (20:29)
[2016-11-01] MEDS: LEVOFLOXACIN 250 MG/D5W 50 ML IV SCH (22:03)
[2016-11-01] MEDS: clonazePAM 0.5 MG TABLET PO PRN (22:03)
[2016-11-02] VITALS: BP 158/109; PULSE 66; RESP 18; TEMP 97.5; O2SAT 92
[2016-11-02] MEDS: IPRATROPIUM/ALBUTEROL SULFATE 3 ML AMPUL.NEB INH SCH ×6 (03:00→22:48)
[2016-11-02 04:00] VITALS: BP 147/71; PULSE 61; RESP 17; TEMP 97.4; O2SAT 96
[2016-11-02] MEDS: D5/0.45 NS 1,000 ML IV SCH ×2 (06:56→16:45)
[2016-11-02 07:47] LABS: BASOPHILS % (AUTO) 0.2 % (0.0-2.0); HEMATOCRIT 39.6 % (36-54); HEMOGLOBIN 13.6 g/dL (14.0-18.0); LYMPHOCYTES # (AUTO) 0.2 K/uL (1.0-5.5); LYMPHOCYTES % (AUTO) 2.2 % (20.5-51.5); MEAN CORPUSCULAR HEMOGLOBIN 31 pg (27-31); MEAN CORPUSCULAR HGB CONC 34 % (32-36); MEAN CORPUSCULAR VOLUME 90 fL (79.0-98.0); MONOCYTES # (AUTO) 0.9 K/uL (0.0-1.0); NEUTROPHILS # (AUTO) 10.2 K/uL (1.8-7.7); NEUTROPHILS % (AUTO) 89.6 % (40.0-70.0); PLATELET COUNT (AUTO) 253 K/uL (130-430); RED BLOOD CELL COUNT(AUTO) 4.39 MIL/uL (4.2-6.2); RED CELL DISTRIBUTION WIDTH 13.1 % (9.0-15.0); WHITE BLOOD COUNT (AUTO) 11.3 K/uL (4.8-10.8)
[2016-11-02 08:00] VITALS: BP 152/73; PULSE 63; RESP 17; TEMP 97.2; O2SAT 97
[2016-11-02] MEDS: CEFEPIME 1 GM in D5W 50 ML IV SCH ×2 (08:28→21:59)
[2016-11-02] MEDS: CARVEDILOL 6.25 MG TABLET (COREG) PO SCH ×2 (08:29→22:13)
[2016-11-02] MEDS: TAMSULOSIN HCL 0.4 MG CAP PO SCH ×2 (08:30→22:14)
[2016-11-02] MEDS: NEPHROVITE, (FOLIC ACID/VITAMIN B COMP W-C 1 TAB) PO SCH (08:30)
[2016-11-02] MEDS: ASPIRIN 81 MG TABLET(ECOTRIN) PO SCH (08:30)
[2016-11-02] MEDS: AMIODARONE HCL 200 MG TABLET PO SCH ×2 (08:30→22:13)
[2016-11-02] MEDS: THIAMINE HCL 100 MG TABLET PO SCH (08:30)
[2016-11-02] MEDS: FAMOTIDINE PF 20 MG/2 ML VIAL IVP SCH ×2 (08:31→22:11)
[2016-11-02] MEDS: LISINOPRIL 20 MG TABLET PO SCH (08:31)
[2016-11-02 09:04] LABS: SODIUM SERUM 140 mmol/L (136-145)
[2016-11-02 09:05] LABS: ANION GAP 4 (5-15); CALCIUM 7.8 mg/dL (8.4-11.0); CHLORIDE 110 mmol/L (98-107); CREATININE 1.49 mg/dL (0.55-1.30); GLUCOSE 133 mg/dL (70-99); UREA NITROGEN, BLOOD 57 mg/dL (8-21)
[2016-11-02 09:06] LABS: CHOLESTEROL 193 mg/dL (<200); HDL CHOLESTEROL 33 mg/dL (>45); TRIGLYCERIDES 121 mg/dL (30-150)
[2016-11-02 09:07] LABS: LDL CHOLESTEROL 135 mg/dL (<100)
[2016-11-02 11:33] VITALS: BP 158/82; PULSE 69; RESP 18; TEMP 97; O2SAT 96
[2016-11-02] MEDS: BUDESONIDE 0.5 MG/2 ML AMPUL.NEB INH SCH ×2 (12:18→20:16)
[2016-11-02] MEDS ORDERED: PREDNISONE 20 MG TABLET PO ONE (14:15)
[2016-11-02 16:21] VITALS: BP 155/79; PULSE 57; RESP 18; TEMP 97; O2SAT 98
[2016-11-02] MEDS: INSULIN REGULAR, HUMAN 100 UNITS/ML, 10 ML VIAL (novoLIN R) SUBCUT PRN (16:55)
[2016-11-02 19:51] VITALS: BP 168/81; PULSE 66; RESP 20; TEMP 97; O2SAT 98
[2016-11-02] MEDS: ENOXAPARIN SODIUM 40 MG/0.4 ML SYRINGE SUBCUT SCH (22:14)
[2016-11-02] MEDS: LEVOFLOXACIN 250 MG/D5W 50 ML IV SCH (22:49)
[2016-11-02] MEDS: clonazePAM 0.5 MG TABLET PO PRN (23:02)
[2016-11-03] VITALS (7 sets, daily range): BP systolic 127–172; BP diastolic 65–96; PULSE 52–70; RESP 16–20; TEMP 96.7–98.1; O2SAT 97–99
[2016-11-03] MEDS: IPRATROPIUM/ALBUTEROL SULFATE 3 ML AMPUL.NEB INH SCH ×6 (03:00→23:00)
[2016-11-03] MEDS: D5/0.45 NS 1,000 ML IV SCH (06:11)
[2016-11-03] MEDS: CEFEPIME 1 GM in D5W 50 ML IV SCH ×2 (09:30→20:16)
[2016-11-03] MEDS: PREDNISONE 20 MG TABLET PO SCH (09:32)
[2016-11-03] MEDS: AMIODARONE HCL 200 MG TABLET PO SCH ×2 (09:33→20:14)
[2016-11-03] MEDS: TAMSULOSIN HCL 0.4 MG CAP PO SCH ×2 (09:34→20:15)
[2016-11-03] MEDS: NEPHROVITE, (FOLIC ACID/VITAMIN B COMP W-C 1 TAB) PO SCH (09:34)
[2016-11-03] MEDS: ASPIRIN 81 MG TABLET(ECOTRIN) PO SCH (09:34)
[2016-11-03] MEDS: THIAMINE HCL 100 MG TABLET PO SCH (09:34)
[2016-11-03] MEDS: LISINOPRIL 20 MG TABLET PO SCH (09:34)
[2016-11-03] MEDS: FAMOTIDINE PF 20 MG/2 ML VIAL IVP SCH (09:35)
[2016-11-03] MEDS: CARVEDILOL 6.25 MG TABLET (COREG) PO SCH ×2 (09:35→20:15)
[2016-11-03] MEDS: BUDESONIDE 0.5 MG/2 ML AMPUL.NEB INH SCH ×2 (09:38→19:54)
[2016-11-03] MEDS: INSULIN REGULAR, HUMAN 100 UNITS/ML, 10 ML VIAL (novoLIN R) SUBCUT PRN (17:27)
[2016-11-03] MEDS: clonazePAM 0.5 MG TABLET PO PRN (20:15)
[2016-11-03] MEDS: APIXABAN 2.5 MG TABLET PO SCH (20:15)
[2016-11-03] MEDS: LEVOFLOXACIN 250 MG/D5W 50 ML IV SCH (22:37)
[2016-11-04 00:55] VITALS: BP 165/75; PULSE 64; RESP 19; TEMP 97.2; O2SAT 98
[2016-11-04] MEDS: IPRATROPIUM/ALBUTEROL SULFATE 3 ML AMPUL.NEB INH SCH ×4 (03:00→15:52)
[2016-11-04 04:00] VITALS: BP 160/72; PULSE 62; RESP 18; TEMP 97.6; O2SAT 98
[2016-11-04] MEDS: BUDESONIDE 0.5 MG/2 ML AMPUL.NEB INH SCH (07:20)
[2016-11-04 07:43] LABS: BASOPHILS # (AUTO) 0.1 K/uL (0.0-0.2); BASOPHILS % (AUTO) 0.5 % (0.0-2.0); EOSINOPHILS # (AUTO) 0.2 K/uL (0.0-0.4); EOSINOPHILS % (AUTO) 1.6 % (0.0-4.0); HEMATOCRIT 38.7 % (36-54); HEMOGLOBIN 13.1 g/dL (14.0-18.0); LYMPHOCYTES # (AUTO) 0.8 K/uL (1.0-5.5); LYMPHOCYTES % (AUTO) 8.2 % (20.5-51.5); MEAN CORPUSCULAR HEMOGLOBIN 31 pg (27-31); MEAN CORPUSCULAR HGB CONC 34 % (32-36); MEAN CORPUSCULAR VOLUME 90 fL (79.0-98.0); MONOCYTES # (AUTO) 0.9 K/uL (0.0-1.0); MONOCYTES % (AUTO) 8.7 % (1.7-9.3); NEUTROPHILS # (AUTO) 8.3 K/uL (1.8-7.7); PLATELET COUNT (AUTO) 248 K/uL (130-430); RED CELL DISTRIBUTION WIDTH 12.9 % (9.0-15.0); WHITE BLOOD COUNT (AUTO) 10.3 K/uL (4.8-10.8)
[2016-11-04 07:56] LABS: ANION GAP 2 (5-15); CALCIUM 7.9 mg/dL (8.4-11.0); CHLORIDE 108 mmol/L (98-107); CREATININE 1.76 mg/dL (0.55-1.30); GLUCOSE 83 mg/dL (70-99); POTASSIUM 5.3 mmol/L (3.5-5.1); SODIUM SERUM 141 mmol/L (136-145); UREA NITROGEN, BLOOD 45 mg/dL (8-21)
[2016-11-04 08:00] VITALS: BP 135/75; PULSE 55; RESP 20; TEMP 96.6; O2SAT 99
[2016-11-04] MEDS: AMIODARONE HCL 200 MG TABLET PO SCH (09:00)
[2016-11-04] MEDS ORDERED: FAMOTIDINE PF 20 MG/2 ML VIAL IVP SCH (09:00)
[2016-11-04] MEDS: CEFEPIME 1 GM in D5W 50 ML IV SCH (09:15)
[2016-11-04] MEDS: NEPHROVITE, (FOLIC ACID/VITAMIN B COMP W-C 1 TAB) PO SCH (11:33)
[2016-11-04] MEDS: CARVEDILOL 6.25 MG TABLET (COREG) PO SCH (11:33)
[2016-11-04] MEDS: LISINOPRIL 20 MG TABLET PO SCH (11:34)
[2016-11-04] MEDS: TAMSULOSIN HCL 0.4 MG CAP PO SCH (11:34)
[2016-11-04] MEDS: APIXABAN 2.5 MG TABLET PO SCH (11:34)
[2016-11-04] MEDS: THIAMINE HCL 100 MG TABLET PO SCH (11:34)
[2016-11-04] MEDS: PREDNISONE 20 MG TABLET PO SCH (11:34)
[2016-11-04 12:19] VITALS: BP 154/91; PULSE 57; RESP 19; TEMP 97.3; O2SAT 99
[2016-11-04 16:40] VITALS: BP 110/53; PULSE 52; RESP 20; TEMP 96.8; O2SAT 96
[2016-11-04 16:57] VITALS: BP 110/53; PULSE 52; RESP 20; TEMP 96.8; O2SAT 96
[2016-11-05] MEDS ORDERED: AMIODARONE HCL 200 MG TABLET PO SCH (09:00)
== END 2016-11-04 18:45 | DRG 870 ==
LOC: SED 18:42 → SIC 20:12 → STU 10-31 20:35
PROVIDERS: ADMIT Internal Medicine; ATTEND Internal Medicine
PROC: 5A1955Z Respiratory Ventilation, Greater than 96 Consecutive Hours (ICD-10-PCS; principal; 2016-10-25)
PROC: 0BH17EZ Insertion of Endotracheal Airway into Trachea, Via Natural or Artificial Opening (ICD-10-PCS; 2016-10-25)
DX: A41.9 Sepsis, unspecified organism (principal); J18.9 Pneumonia, unspecified organism; J96.01 Acute respiratory failure with hypoxia; R65.21 Severe sepsis with septic shock; E43 Unspecified severe protein-calorie malnutrition; I21.4 Non-ST elevation (NSTEMI) myocardial infarction; N17.9 Acute kidney failure, unspecified; E87.2 Acidosis; J44.1 Chronic obstructive pulmonary disease with (acute) exacerbation; J44.0 Chronic obstructive pulmonary disease with (acute) lower respiratory infection; J45.901 Unspecified asthma with (acute) exacerbation; D68.59 Other primary thrombophilia; I48.0 Paroxysmal atrial fibrillation; D64.9 Anemia, unspecified; E86.0 Dehydration; E83.51 Hypocalcemia; E87.6 Hypokalemia; I10 Essential (primary) hypertension; Z88.0 Allergy status to penicillin; Z79.2 Long term (current) use of antibiotics; Z79.899 Other long term (current) drug therapy; Z86.73 Personal history of transient ischemic attack (TIA), and cerebral infarction without residual deficits
CPT/HCPCS: 36415; 36600; 70450-TC; 71010; 71270-TC; 76705; 76770; 80048; 80053; 80061; 82140-TC; 82306; 82550-TC; 82607; 82746; 82803-TC; 82962; 83036; 83540-TC; 83550-TC; 83605; 83735-TC; 83880; 84100-TC; 84439; 84443-TC; 84484; 85025; 85610-TC; 86710; 87040-TC; 87070-TC; 87081; 87205-TC; 93005; 93306; 94003; 94640; 94760; 96361; 96374; 96375; 97110-GP; 97116-GP; 97530-GP; 99291; J0153; J0282; J0360; J0692; J1030; J1160; J1650; J1815; J1940; J1956; J2060; J2270; J2704; J2930; J3411; J3480; J3490; J7030; J7040; J7050; J7060; J7120; J7512; Q2037

== ENCOUNTER 2017-07-29 10:34 | Outpatient (CLI) | payer OTHER, MEDICARE | END 2017-07-29 20:50 | disposition home or self-care (01) | LOC: SCT 10:34 | PROVIDERS: ATTEND Specialist | DX: I25.10 Atherosclerotic heart disease of native coronary artery without angina pectoris (principal); J90 Pleural effusion, not elsewhere classified; R22.2 Localized swelling, mass and lump, trunk | CPT/HCPCS: 71250-TC ==

== ENCOUNTER 2018-05-01 16:19 | Inpatient (IN) | payer OTHER, MEDICARE ==
[~2018-05-01] VITALS: Ht 167.6 cm; Wt 83.0 kg
[2018-05-01 16:20] VITALS: BP_SYST 158
[2018-05-01 17:10] LABS: BASOPHILS % (AUTO) 0.7 % (0.0-2.0); EOSINOPHILS # (AUTO) 0.2 K/uL (0.0-0.4); HEMATOCRIT 45.2 % (36-54); HEMOGLOBIN 15.2 g/dL (14.0-18.0); LYMPHOCYTES # (AUTO) 1.9 K/uL (1.0-5.5); LYMPHOCYTES % (AUTO) 27.4 % (20.5-51.5); MEAN CORPUSCULAR HEMOGLOBIN 31 pg (27-31); MEAN CORPUSCULAR HGB CONC 34 % (32-36); MEAN CORPUSCULAR VOLUME 91 fL (79.0-98.0); MONOCYTES # (AUTO) 0.8 K/uL (0.0-1.0); MONOCYTES % (AUTO) 11.5 % (1.7-9.3); NEUTROPHILS # (AUTO) 4.2 K/uL (1.8-7.7); NEUTROPHILS % (AUTO) 57.4 % (40.0-70.0); PLATELET COUNT (AUTO) 163 K/uL (130-430); RED BLOOD CELL COUNT(AUTO) 4.96 MIL/uL (4.2-6.2); RED CELL DISTRIBUTION WIDTH 12.9 % (9.0-15.0); WHITE BLOOD COUNT (AUTO) 7.1 K/uL (4.8-10.8)
[2018-05-01 17:24] LABS: ANION GAP 8 (5-15); CALCIUM 8.9 mg/dL (8.4-11.0); CHLORIDE 106 mmol/L (98-107); CREATININE 1.42 mg/dL (0.55-1.30); GLUCOSE 96 mg/dL (70-99); POTASSIUM 4.2 mmol/L (3.5-5.1); SODIUM SERUM 139 mmol/L (136-145); UREA NITROGEN, BLOOD 33 mg/dL (8-21)
[2018-05-01 17:33] LABS: ALANINE AMINOTRANSFERASE 27 U/L (12-78); ALBUMIN 3.5 g/dL (3.4-4.8); ASPARTATE AMINOTRANSFERASE 16 U/L (10-37); FREE T4 (FREE THYROXINE) 0.5 ng/dL (0.6-1.6); TOTAL BILIRUBIN 0.3 mg/dL (0.0-1.0)
[2018-05-01 17:34] LABS: ALCOHOL, BLOOD < 3 mg/dL (<10)
[2018-05-01 18:22] LABS: BILIRUBIN,URINE NEGATIVE (NEGATIVE); BLOOD, URINE NEGATIVE (NEGATIVE); CLARITY/URINE CLEAR (CLEAR); COLOR,URINE YELLOW (YELLOW); GLUCOSE,URINE NEGATIVE (NEGATIVE); KETONES,URINE NEGATIVE (NEGATIVE); LEUKOCYTE ESTERASE ,URINE NEGATIVE (NEGATIVE); NITRITE, URINE NEGATIVE (NEGATIVE); PH,URINE 5.5 (5.0-8.0); PROTEIN URINE NEGATIVE (NEGATIVE); UROBILINOGEN,URINE 0.2 (0.2-1.0)
[2018-05-01] MEDS ORDERED: ASPIRIN 81 MG TAB.CHEW PO ONE ×2 (18:30→18:45)
[2018-05-01] MEDS ORDERED: LISI-600 PO (18:33)
[2018-05-01] MEDS ORDERED: [UNRECOGNIZED DRUG - CODE] PO (18:33)
[2018-05-01] MEDS ORDERED: HYDR-4039 PO (18:33)
[2018-05-01 18:43] LABS: BARBITURATE, URINE NEGATIVE (NEG <=200); BENZODIAZEPINE, URINE NEGATIVE (NEG <=150); CANNABINOID, URINE NEGATIVE (NEG <=50); COCAINE, URINE NEGATIVE (NEG <=150); METHAMPHETAMINES SCREEN,URINE NEGATIVE (NEG <=500); OPIATE, URINE NEGATIVE (NEG <=100); PHENCYCLIDINE SCREEN,URINE NEGATIVE (NEG <=25); UR TRICYCLIC ANTIDEPRESSANTS NEGATIVE (NEG <=300); URINE AMPHETAMINE POSITIVE (NEG <=500); URINE METHADONE NEGATIVE (NEG <=200); URINE OXYCODONE SCREEN NEGATIVE (NEG <=100); URINE PROPOXYPHENE SCREEN NEGATIVE (NEG <=300)
[2018-05-01] MEDS ORDERED: NITROGLYCERIN 1 INCH (GM) OINT. TP ONE (18:45)
[2018-05-01 19:19] VITALS: BP_SYST 163
[2018-05-01] MEDS: METHYLDOPA 250 MG TABLET (ALDOMET) PO SCH (21:00)
[2018-05-01] MEDS ORDERED: ENOXAPARIN SODIUM 40 MG/0.4 ML SYRINGE SUBCUT SCH (21:00)
[2018-05-01] MEDS ORDERED: INSULIN REGULAR, HUMAN 100 UNITS/ML, 10 ML VIAL (novoLIN R) SUBCUT PRN (21:15)
[2018-05-01] MEDS ORDERED: DEXTROSE 50% JECT 50 ML DISP.SYRIN IVP PRN (21:15)
[2018-05-01] MEDS: hydrALAZINE HCL 25 MG TABLET PO SCH (21:35)
[2018-05-02 00:24] VITALS: BP_SYST 149
[2018-05-02 04:50] VITALS: BP_SYST 173
[2018-05-02] MEDS: cloNIDine HCL 0.1 MG TABLET PO PRN ×2 (05:09→11:53)
[2018-05-02 07:17] LABS: THYROID STIMULATING HORMONE 1.44 uIu/mL (0.36-3.74)
[2018-05-02 07:54] LABS: ANION GAP 5 (5-15); CHLORIDE 105 mmol/L (98-107); POTASSIUM 3.9 mmol/L (3.5-5.1); SODIUM SERUM 137 mmol/L (136-145)
[2018-05-02 07:55] LABS: ALANINE AMINOTRANSFERASE 27 U/L (12-78); ALBUMIN 3.3 g/dL (3.4-4.8); ASPARTATE AMINOTRANSFERASE 16 U/L (10-37); CALCIUM 8.9 mg/dL (8.4-11.0); CREATININE 1.37 mg/dL (0.55-1.30); GLUCOSE 85 mg/dL (70-99); TOTAL BILIRUBIN 0.5 mg/dL (0.0-1.0); UREA NITROGEN, BLOOD 25 mg/dL (8-21)
[2018-05-02 07:56] LABS: HDL CHOLESTEROL 28 mg/dL (>45); LDL CHOLESTEROL 170 mg/dL (<100); TRIGLYCERIDES 196 mg/dL (30-150)
[2018-05-02 08:20] VITALS: BP_SYST 152
[2018-05-02 08:25] LABS: CHOLESTEROL 238 mg/dL (<200)
[2018-05-02] MEDS: hydrALAZINE HCL 25 MG TABLET PO SCH (08:26)
[2018-05-02] MEDS ORDERED: LISINOPRIL 20 MG TABLET PO SCH (09:00)
[2018-05-02] MEDS ORDERED: ASPIRIN 81 MG TABLET(ECOTRIN) PO SCH (09:00)
[2018-05-02] MEDS: METHYLDOPA 250 MG TABLET (ALDOMET) PO SCH (10:27)
[2018-05-02 11:30] VITALS: BP_SYST 166
[2018-05-02 13:23] VITALS: BP_SYST 147
[2018-05-02 18:09] LABS: WHITE BLOOD COUNT (AUTO) 7.3 K/uL (4.8-10.8)
[2018-05-02 18:10] LABS: HEMATOCRIT 45.6 % (36-54); HEMOGLOBIN 15.6 g/dL (14.0-18.0); MEAN CORPUSCULAR HEMOGLOBIN 30 pg (27-31); MEAN CORPUSCULAR VOLUME 89 fL (79.0-98.0); RED BLOOD CELL COUNT(AUTO) 5.12 MIL/uL (4.2-6.2)
[2018-05-02 18:11] LABS: BASOPHILS % (AUTO) 0.7 % (0.0-2.0); EOSINOPHILS # (AUTO) 0.3 K/uL (0.0-0.4); EOSINOPHILS % (AUTO) 4.2 % (0.0-4.0); LYMPHOCYTES # (AUTO) 1.9 K/uL (1.0-5.5); LYMPHOCYTES % (AUTO) 25.8 % (20.5-51.5); MEAN CORPUSCULAR HGB CONC 34 % (32-36); MONOCYTES # (AUTO) 0.8 K/uL (0.0-1.0); NEUTROPHILS # (AUTO) 4.2 K/uL (1.8-7.7); NEUTROPHILS % (AUTO) 58.3 % (40.0-70.0); PLATELET COUNT (AUTO) 161 K/uL (130-430)
[2018-05-02 18:12] LABS: BASOPHILS # (AUTO) 0.1 K/uL (0.0-0.2)
[2018-05-03] MEDS ORDERED: ATORVASTATIN 20 MG TABLET PO SCH (09:00)
== END 2018-05-02 14:58 | disposition left against medical advice (07) | DRG 66 ==
LOC: SED 16:19 → STU 18:19
PROVIDERS: ADMIT Internal Medicine; ATTEND Internal Medicine
DX: I63.9 Cerebral infarction, unspecified (principal); I10 Essential (primary) hypertension; J45.909 Unspecified asthma, uncomplicated; E78.5 Hyperlipidemia, unspecified; Z53.21 Procedure and treatment not carried out due to patient leaving prior to being seen by health care provider; I48.0 Paroxysmal atrial fibrillation; R79.89 Other specified abnormal findings of blood chemistry; R47.81 Slurred speech; E66.9 Obesity, unspecified; Z68.29 Body mass index [BMI] 29.0-29.9, adult; Z86.73 Personal history of transient ischemic attack (TIA), and cerebral infarction without residual deficits; Z88.0 Allergy status to penicillin; Z88.7 Allergy status to serum and vaccine; Z79.899 Other long term (current) drug therapy; F15.129 Other stimulant abuse with intoxication, unspecified
CPT/HCPCS: 36415; 70450-TC; 71045; 74018; 80053; 80061; 80307; 81003; 82140-TC; 82962; 83605; 83880; 84439; 84443-TC; 84484; 85025; 85610-TC; 87040-TC; 93005; 93306; 93880; 99285; G0482; J1650